=== PATIENT | female | born 1945 | race Caucasian/White ===

== ENCOUNTER 2021-07-10 19:43 | Inpatient (IN) ==
[2021-07-10] MEDS ORDERED: ALBUT/IPRATROP 3MG/0.5MG NEB 3 ML VIAL INH STA (20:05)
--- NOTE | 2021-07-10 20:14 | Emergency Department Note ---
History of Present Illness General Chief complaint: Shortness of Breath/Dyspnea Stated complaint: SOB, COUGH, DIAHRREA Time Seen by Provider: 07/10/21 19:50 History of Present Illness 74-year-old female presents to the ED with a chief complaint of a cough productive of clear phlegm for the past couple of months. Over the past week she has been having increased exertional dyspnea. She does have some dyspnea w ith exertion but this has worsened over the past week. She denies any chest discomfort or chest pains. She does have some chronic edema to the right foot compared to the left that seems to come and go. She denies any calf pains. She has not had any fever. She takes lisinopril for blood pressure otherwise is on no other oral medications. Home Medications Medication Instructions Recorded Confirmed Type lisinopril 40 mg tablet 40 mg PO DAILY 07/10/21 07/10/21 History metronidazole 0.75 % topical cream 1 applic TOPICAL UD 07/10/21 07/10/21 History Allergies Allergy/AdvReac Type Severity Reaction Status Date / Time No Known Allergies Allergy Unverified 12/11/12 10:17 Past Med/Surg History Social History Smoking Status: Never smoker Preferred Language: Argentine Feels Safe at Home: Yes Review of Systems A total of 10 systems reviewed and were otherwise negative Physical Exam Vital Signs Vital Signs - 24 hr 07/10/21 19:46 07/10/21 20:30 07/10/21 21:00 Temperature 36.0 C L Temperature Source Temporal Artery Scan Pulse Rate 101 H 86 Respiratory Rate 18 18 Respiratory Effort / Characteristics Non-Labored Respiratory Depth Normal Normal Respiratory Pattern Regular Blood Pressure 162/77 H 149/67 H Blood Pressure Mean 105 94 Pulse Oximetry 93 95 Oxygen Delivery Method Room Air Room Air Room Air Sepsis Recent Fever Within 48 Hours No Sepsis New/Unexplained Change in Mental Status N/A Sepsis Action Taken by Nursing No Action Required 07/10/21 21:47 07/10/21 22:00 07/10/21 22:20 Temperature Temperature Source Pulse Rate 90 89 89 Respiratory Rate 20 Respiratory Effort / Characteristics Respiratory Depth Respiratory Pattern Blood Pressure 135/76 114/57 L 170/90 H Blood Pressure Mean 95 76 116 Pulse Oximetry 95 93 95 Oxygen Delivery Method Room Air Room Air Room Air Sepsis Recent Fever Within 48 Hours Sepsis New/Unexplained Change in Mental Status Sepsis Action Taken by Nursing 07/10/21 22:30 Temperature Temperature Source Pulse Rate 90 Respiratory Rate 19 Respiratory Effort / Characteristics Respiratory Depth Respiratory Pattern Blood Pressure 136/85 Blood Pressure Mean 102 Pulse Oximetry 97 Oxygen Delivery Method Room Air Sepsis Recent Fever Within 48 Hours Sepsis New/Unexplained Change in Mental Status Sepsis Action Taken by Nursing CONSTITUTIONAL/VITAL SIGNS: Reviewed / noted above. GENERAL: Non-toxic in appearance. INTEGUMENTARY: Warm, dry, and [place]. HEAD: Normocephalic. EYES: without scleral icterus or trauma. ENT/OROPHARYNX: clear and moist. RESPIRATORY: Clear to auscultation bilaterally but diminished in the bases. No increased work of breathing. CARDIOVASCULAR: Regular rate and rhythm. GI/ABDOMEN: Soft and nontender. EXTREMITIES: Warm and well perfused. There is a little edema to the right foot compared to the left. No calf tenderness. NEUROLOGICAL: Intact without focal deficits. PSYCHIATRIC: normal affect. MUSCULOSKELETAL: Normally developed with good muscle tone. TRIAGE NURSING DOCUMENTATION REVIEWED. Course Administered Medications Heparin Sodium/Dextrose (Heparin Sodium/Dextrose) 25,000 units in 500 mls @ 26 mls/hr IV .[id number] EDWARD; Protocol Stop: 08/09/21 22:44 Last Admin: 07/10/21 23:06 Dose: 1,300 units/hr, 26 mls/hr Documented by: [id number] Cosigned by: [id number] Discontinued Medications Albuterol (Albut/Ipratrop 3mg/0.5mg Neb 3 Ml Vial) 3 ml INH NOW STA Stop: 07/10/21 20:06 Last Admin: 07/10/21 20:47 Dose: 3 ml Documented by: [id number] Heparin Sodium (Porcine) (Heparin Sod (Porcine) 1000 Unit/Ml) 6,000 units IV NOW ONE Stop: 07/10/21 23:01 Last Admin: 07/10/21 23:06 Dose: 6,000 units Documented by: [id number] Cosigned by: [id number] Heparin Sodium/Dextrose (Heparin Iv Adult Wt-Based Standard With Bolus Protocol) 1 ea IV NOW STA; Protocol Stop: 07/10/21 22:24 Last Admin: 07/10/21 23:08 Dose: Not Given Documented by: [id number] Ioversol (Optiray 320 125ml) 120 ml IV ONCE ONE Stop: 07/10/21 21:44 Last Admin: 07/10/21 21:44 Dose: 1 ml Documented by: [id number] Critical Care Time Critical Care Time: Yes Total Critical Care Time: 30 I have personally spent 30 minutes of critical care time in the direct management of this patient. This includes bedside care, interpretation of diagnostic studies, and testing, discussion with consultants, patient, and family members, and other required patient management activities. This 30 minutes is in excess of all separately billable procedures. Medical Decision Making Differential Diagnosis The differential was considered includes acute myocardial infarction, acute alexis nary syndrome, myocarditis, pericarditis, pericardial effusions /tamponad, esophageal perforation, pulmonary embolism, pneumonia, pneumothorax, cardiomyopathy, congestive heart, anemia , COPD/asthma exacerbation. Medical Records Attestation: I reviewed the patient's medical records. Home Medications Current Medication List: was personally reviewed by me Laboratory Data Attestation: I reviewed the patient's lab results. Result diagrams: 07/10/21 20:10 07/10/21 21:03 Lab Results 07/10/21 07/10/21 07/10/21 Range/Units 20:10 20:10 20:10 WBC 14.11 H (4.8-10.8) K/uL RBC 4.58 (4.2-5.4) M/uL Hgb 14.6 (12.0-16.0) g/dL Hct 43.3 (37-47) % MCV 94.5 (80-100) fL MCH 31.9 (25-34) pg MCHC 33.7 (32-36) g/dL RDW Std Deviation 46.1 (36.4-46.3) fL RDW Coeff of Daniel 13.3 (11.5-14.5) % Plt Count 170 (130-400) K/uL MPV 10.5 H (7.4-10.4) fL Immature Gran % (Auto) 0.3 % Neut % (Auto) 53.5 % Lymph % (Auto) 35.4 % Turner % (Auto) 9.1 % Eos % (Auto) 1.5 % Baso % (Auto) 0.2 % Neut # (Auto) 7.56 H (1.4-6.5) K/uL Lymph # (Auto) 4.99 H (1.2-3.4) K/uL Turner # (Auto) 1.28 H (0.11-0.59) K/uL Eos # (Auto) 0.21 (0-0.5) K/uL Baso # (Auto) 0.03 (0-0.2) K/uL Immature Gran # (Auto) 0.04 H (0.00-0.02) K/uL PT 10.4 (9.0-12.0) Seconds INR 1.0 (0.9-1.1) APTT 24.6 (21.0-31.0) Seconds PTT Ratio 0.9 D-Dimer 99078 H* (0-500) ug/L FEU Sodium 137 (136-145) mmol/L Potassium (3.5-5.1) mmol/L Chloride 107 (98-107) mmol/L Carbon Dioxide 22 (21-32) mmol/L Anion Gap 8 (3-11) BUN 16 (6-23) mg/dl Creatinine 1.11 (0.6-1.2) mg/dl Est Cr Clr Drug Dosing 51.7 ml/min Est GFR ( Amer) 57.1 ml/min Est GFR (Non-Af Amer) 49.2 ml/min BUN/Creatinine Ratio 14.4 (10-20) Glucose 116 H (70-99(Fasting)) mg/dl Calcium 9.4 (8.5-10.1) mg/dl Total Bilirubin 0.6 (0.2-1.0) mg/dl AST (13-39) U/L ALT 14 (7-52) U/L Alkaline Phosphatase 97 (34-104) U/L Troponin I 0.13 H* (0-0.04) ng/ml B-Natriuretic Peptide (0-100) pg/ml Total Protein 7.2 (6.0-8.3) gm/dl Albumin 3.8 (3.4-5.0) gm/dl Globulin 3.4 (2.5-4.0) gm/dl Albumin/Globulin Ratio 1.1 (0.9-2) Urine Color Urine Appearance (Clear) Urine pH (4.5-7.5) Ur Specific [place] (1.000-1.030) Urine Protein (Negative) Urine Glucose (UA) (Negative) Urine Ketones (Negative) Urine Blood (Negative) Urine Nitrite (Negative) Urine Bilirubin (Negative) Urine Urobilinogen (Negative) Ur Leukocyte Esterase (Negative) Urine WBC (Auto) (0-5) /hpf Urine RBC (Auto) (0-4) /hpf U Hyaline Cast (Auto) (0-5) /lpf U Epithel Cells (Auto) (0-5) /lpf Urine Bacteria (Auto) (Negative) SARS-CoV-2, RNA, NAAT (NEGATIVE) 07/10/21 07/10/21 07/10/21 Range/Units 20:10 20:35 21:03 WBC (4.8-10.8) K/uL RBC (4.2-5.4) M/uL Hgb (12.0-16.0) g/dL Hct (37-47) % MCV (80-100) fL MCH (25-34) pg MCHC (32-36) g/dL RDW Std Deviation (36.4-46.3) fL RDW Coeff of Daniel (11.5-14.5) % Plt Count (130-400) K/uL MPV (7.4-10.4) fL Immature Gran % (Auto) % Neut % (Auto) % Lymph % (Auto) % Turner % (Auto) % Eos % (Auto) % Baso % (Auto) % Neut # (Auto) (1.4-6.5) K/uL Lymph # (Auto) (1.2-3.4) K/uL Turner # (Auto) (0.11-0.59) K/uL Eos # (Auto) (0-0.5) K/uL Baso # (Auto) (0-0.2) K/uL Immature Gran # (Auto) (0.00-0.02) K/uL PT (9.0-12.0) Seconds INR (0.9-1.1) APTT (21.0-31.0) Seconds PTT Ratio D-Dimer (0-500) ug/L FEU Sodium (136-145) mmol/L Potassium 4.6 (3.5-5.1) mmol/L Chloride (98-107) mmol/L Carbon Dioxide (21-32) mmol/L Anion Gap (3-11) BUN (6-23) mg/dl Creatinine (0.6-1.2) mg/dl Est Cr Clr Drug Dosing ml/min Est GFR ( Amer) ml/min Est GFR (Non-Af Amer) ml/min BUN/Creatinine Ratio (10-20) Glucose (70-99(Fasting)) mg/dl Calcium (8.5-10.1) mg/dl Total Bilirubin (0.2-1.0) mg/dl AST 16 (13-39) U/L ALT (7-52) U/L Alkaline Phosphatase (34-104) U/L Troponin I (0-0.04) ng/ml B-Natriuretic Peptide 69 (0-100) pg/ml Total Protein (6.0-8.3) gm/dl Albumin (3.4-5.0) gm/dl Globulin (2.5-4.0) gm/dl Albumin/Globulin Ratio (0.9-2) Urine Color Yellow Urine Appearance Clear (Clear) Urine pH 5.0 (4.5-7.5) Ur Specific [place] 1.010 (1.000-1.030) Urine Protein Negative (Negative) Urine Glucose (UA) Negative (Negative) Urine Ketones Negative (Negative) Urine Blood Trace H (Negative) Urine Nitrite Negative (Negative) Urine Bilirubin Negative (Negative) Urine Urobilinogen Negative (Negative) Ur Leukocyte Esterase 1+ H (Negative) Urine WBC (Auto) 10-30 H (0-5) /hpf Urine RBC (Auto) 0-4 (0-4) /hpf U Hyaline Cast (Auto) 1-5 (0-5) /lpf U Epithel Cells (Auto) >30 H (0-5) /lpf Urine Bacteria (Auto) Negative (Negative) SARS-CoV-2, RNA, NAAT (NEGATIVE) 07/10/21 Range/Units 22:34 WBC (4.8-10.8) K/uL RBC (4.2-5.4) M/uL Hgb (12.0-16.0) g/dL Hct (37-47) % MCV (80-100) fL MCH (25-34) pg MCHC (32-36) g/dL RDW Std Deviation (36.4-46.3) fL RDW Coeff of Daniel (11.5-14.5) % Plt Count (130-400) K/uL MPV (7.4-10.4) fL Immature Gran % (Auto) % Neut % (Auto) % Lymph % (Auto) % Turner % (Auto) % Eos % (Auto) % Baso % (Auto) % Neut # (Auto) (1.4-6.5) K/uL Lymph # (Auto) (1.2-3.4) K/uL Turner # (Auto) (0.11-0.59) K/uL Eos # (Auto) (0-0.5) K/uL Baso # (Auto) (0-0.2) K/uL Immature Gran # (Auto) (0.00-0.02) K/uL PT (9.0-12.0) Seconds INR (0.9-1.1) APTT (21.0-31.0) Seconds PTT Ratio D-Dimer (0-500) ug/L FEU Sodium (136-145) mmol/L Potassium (3.5-5.1) mmol/L Chloride (98-107) mmol/L Carbon Dioxide (21-32) mmol/L Anion Gap (3-11) BUN (6-23) mg/dl Creatinine (0.6-1.2) mg/dl Est Cr Clr Drug Dosing ml/min Est GFR ( Amer) ml/min Est GFR (Non-Af Amer) ml/min BUN/Creatinine Ratio (10-20) Glucose (70-99(Fasting)) mg/dl Calcium (8.5-10.1) mg/dl Total Bilirubin (0.2-1.0) mg/dl AST (13-39) U/L ALT (7-52) U/L Alkaline Phosphatase (34-104) U/L Troponin I (0-0.04) ng/ml B-Natriuretic Peptide (0-100) pg/ml Total Protein (6.0-8.3) gm/dl Albumin (3.4-5.0) gm/dl Globulin (2.5-4.0) gm/dl Albumin/Globulin Ratio (0.9-2) Urine Color Urine Appearance (Clear) Urine pH (4.5-7.5) Ur Specific [place] (1.000-1.030) Urine Protein (Negative) Urine Glucose (UA) (Negative) Urine Ketones (Negative) Urine Blood (Negative) Urine Nitrite (Negative) Urine Bilirubin (Negative) Urine Urobilinogen (Negative) Ur Leukocyte Esterase (Negative) Urine WBC (Auto) (0-5) /hpf Urine RBC (Auto) (0-4) /hpf U Hyaline Cast (Auto) (0-5) /lpf U Epithel Cells (Auto) (0-5) /lpf Urine Bacteria (Auto) (Negative) SARS-CoV-2, RNA, NAAT NEGATIVE (NEGATIVE) ECG Data Attestation: I personally reviewed and interpreted this ECG as follows: Additional Comments: Twelve-lead EKG: Per my interpretation shows a normal sinus rhythm at a rate of 89. No ST elevation. No PVCs. Normal QTC. MDM Narrative 75-year-old female with increased exertional dyspnea over the past week as well as a chronic cough for 2 months. Initial blood pressure was elevated. Heart rate was 101. Twelve-lead EKG showed a heart rate of 89. Afebrile. Sats of 95% on room air in the room. Triage had 93%. The patient transition to the bed from the wheelchair her sats dropped to 90%, per nursing. Patient's twelve-lead EKG shows a normal sinus rhythm at a rate of 89 without acute ischemic changes. Troponin is elevated 0.13. CT scan reveals bilateral pulmonary emboli. D-dimer was elevated and white blood cell count was 14.4. The patient was started on IV heparin. She will be seen by the hospitalist for further inpatient evaluation and care. Impression & Plan Bilateral pulmonary embolism Discharge Plan Visit Data Chief Complaint: Shortness of Breath/Dyspnea Stated Complaint: SOB, COUGH, DIAHRREA ED Provider: Rory Nichols Discharge Problem: Bilateral pulmonary embolism Patient Disposition: Being Evaluated by Hospitalist Forms Stand Alone Forms: My [facility] [employer] Prescriptions Prescriptions: No Action metronidazole 0.75 % cream 1 applic TOPICAL UD RF: 0 lisinopril 40 mg tablet 40 mg PO DAILY RF: 0 Referrals Referrals: Haroon Cristina MD [Primary Care Provider] -
[2021-07-10 20:26] LABS: Basophils # (auto) 0.03 K/uL (0-0.2); Basophils % (auto) 0.2 %; Eosinophils # (auto) 0.21 K/uL (0-0.5); Eosinophils % (auto) 1.5 %; Hematocrit (blood only) 43.3 % (37-47); Hemoglobin 14.6 g/dL (12.0-16.0); Immature Granulocytes # (auto) 0.04 K/uL (0.00-0.02); Immature Granulocytes % (auto) 0.3 %; Lymphocytes # (auto) 4.99 K/uL (1.2-3.4); Lymphocytes % (auto) 35.4 %; Mean Corpuscular Hemoglobin 31.9 pg (25-34); Mean Corpuscular Hgb Conc 33.7 g/dL (32-36); Mean Corpuscular Volume 94.5 fL (80-100); Mean Platelet Volume 10.5 fL (7.4-10.4); Monocytes # (auto) 1.28 K/uL (0.11-0.59); Monocytes % (auto) 9.1 %; Neutrophils # (auto) 7.56 K/uL (1.4-6.5); Neutrophils % (auto) 53.5 %; Platelet Count 170 K/uL (130-400); RDW Coefficient of Variation 13.3 % (11.5-14.5); RDW Standard Deviation 46.1 fL (36.4-46.3); Red Blood Count 4.58 M/uL (4.2-5.4); White Blood Count 14.11 K/uL (4.8-10.8)
[2021-07-10 20:46] LABS: Partial Thromboplastin Ratio 0.9; Partial Thromboplastin Time 24.6 Seconds (21.0-31.0); Prothrombin Time 10.4 Seconds (9.0-12.0)
[2021-07-10 20:56] LABS: Albumin Globulin Ratio 1.1 (0.9-2); Albumin Level 3.8 gm/dl (3.4-5.0); BUN Creatinine Ratio 14.4 (10-20); Bilirubin,Total 0.6 mg/dl (0.2-1.0); Calcium 9.4 mg/dl (8.5-10.1); Creatinine Clr Calc Pharmacy 51.7 ml/min; Est GFR (African American) 57.1 ml/min; Est GFR (Non-African American) 49.2 ml/min; Globulin 3.4 gm/dl (2.5-4.0); Total Protein 7.2 gm/dl (6.0-8.3); Troponin I 0.13 ng/ml (0-0.04)
[2021-07-10 21:11] LABS: Appearance Urine Clear (Clear); Bacteria Urine Automated Negative (Negative); Bilirubin Urine Negative (Negative); Blood Urine Trace (Negative); Color Urine Yellow; Epithelial Cell Urine Auto >30 /lpf (0-5); Glucose Urine UA Negative (Negative); Ketones Urine Negative (Negative); Leukocyte Esterase Urine 1+ (Negative); Nitrite Urine Negative (Negative); Protein Urine Negative (Negative); RBC Urine Automated 0-4 /hpf (0-4); Urobilinogen Urine Negative (Negative)
[2021-07-10 21:16] LABS: D Dimer 11470 ug/L FEU (0-500)
[2021-07-10 21:34] LABS: Potassium 4.6 mmol/L (3.5-5.1)
[2021-07-10] MEDS ORDERED: OPTIRAY 320 125ml IV ONE (21:43)
[2021-07-10] MEDS ORDERED: Heparin IV Adult Wt-Based Standard WITH Bolus Protocol IV STA (22:23)
[2021-07-10] MEDS ORDERED: HEPARIN SOD (PORCINE) 1000 UNIT/ML IV ONE ×2 (22:38→23:00)
[2021-07-10] MEDS: HEPARIN SODIUM/DEXTROSE 25,000 UNITS/500 ML BAG IV SCH (23:06)
[2021-07-10] MEDS ORDERED: ONDANSETRON INJ 2 MG/ML 2 ML VIAL IV PRN (23:59)
[2021-07-10] MEDS ORDERED: SODIUM CHLORIDE 0.9% 1000ML 1,000 ML IV SCH (23:59)
[2021-07-10] MEDS ORDERED: NITROGLYCERIN SL 0.4 MG/TAB TAB SL PRN (23:59)
[2021-07-10] MEDS ORDERED: LEVALBUTEROL HCL 1.25 MG/3 ML NEB NEB PRN (23:59)
[2021-07-11] MEDS: cefTRIAXone SODIUM 2,000 MG in DEXTROSE 5% 50 ML IV SCH ×2 (01:09→23:53)
--- NOTE | 2021-07-11 03:03 | History and Physical Report ---
DATE OF ADMISSION: 07/10/2021. CHIEF COMPLAINT: Shortness of breath. HISTORY OF PRESENT ILLNESS: A 75-year-old female with past medical history significant for prediabetes, hypertension, GERD, chronic kidney disease stage III, sciatica presents with shortness of breath. The patient since last Monday, was getting progressively short of breath . Currently walking short distance making her short of breath, which prompted her to come to the ER. She is having cough since last 2 months. Whenever she gets cough, she is having some whitish phlegm and when she coughs, it lasts for sometime causing some chest soreness and sore throat. Denies any fever or chills. No headache, no dizziness, no blurred visions, no earache, no runny nose, no sore throat, no nausea, no vomiting, no abdominal pain. Normal bowel and bladder movements. Denies any blood in stools or black stools, no hematuria. She has always has some swelling in the legs on and off. The patient was found to have bilateral PE and right heart strain, no recent surgeries. No recent long distance travel, but the patient has significant family history of blood clots. Currently, hemodynamics are stable. Saturating okay on room air. ALLERGIES: No known drug allergies. PAST MEDICAL HISTORY: As mentioned above. PAST SURGICAL HISTORY: Colonoscopy, lumbosacral spinal shots, lumbar spine fusion surgery, removal of the heel spur, repair of ruptured Achilles tendon. MEDICATIONS: The patient is on lisinopril 40 mg p.o. daily, metronidazole topical p.r.n. FAMILY HISTORY: Significant for brother has had colon cancer, brother has diabetes, mother has diabetes, heart disorder; father has heart disorder; sister has diabetes. SOCIAL HISTORY: Single. No smoking, alcohol rare, no drug use. REVIEW OF SYSTEMS: As per HPI. Rest of review of systems is negative. PHYSICAL EXAMINATION: GENERAL: The patient is of moderate build, not in acute distress. VITAL SIGNS: Temperature 36, pulse 90, respiratory rate 19, blood pressure 136/85, oxygen 97% on room air. HEENT: Pupils equal, round and reactive to light. Oral mucosa moist. NECK: No JVD. No neck masses. CARDIOVASCULAR: S1 and S2 heard. Regular rate and rhythm. No murmur, no gallop. RESPIRATORY SYSTEM: Normal AP diameter. No accessory muscle use. No wheezing, no crackles. ABDOMEN: Soft, bowel sounds present, nontender, nondistended. CENTRAL NERVOUS SYSTEM: Cranial nerves II-XII grossly intact, nonfocal. EXTREMITIES: No edema, no erythema. LABORATORY DATA: WBC 14, hemoglobin 14.6, hematocrit 43.3, platelets 170. PT 10.4 14.4, INR 1, APTT 24.6. D-dimer 25901. Sodium 137, potassium 4.6, chloride 107, bicarbonate 22, BUN 16, creatinine 1.1, serum glucose 116, calcium 9.4, total bilirubin 0.6, AST 16, ALT 14, alkaline phosphatase 97. Troponin 0.13. BNP 69. Urinalysis: Trace blood, +1 leukocyte esterase. SARS-CoV-2 RNA rapid test negative. IMAGING DATA: CTA of the chest shows on the preliminary report multifocal lobar and segmental pulmonary emboli with findings suggestive of right heart strain, no focal consolidation, pleural effusion or pneumothorax. EKG: Normal sinus rhythm at a rate of 89, no significant change was found. ASSESSMENT AND PLAN: This is a 75-year-old female who presents with shortness of breath, found to have bilateral PE and right heart strain. 1. Bilateral PE and right heart strain. Currently, saturating okay on room air, hemodynamically stable. Short of breath on minimal exertion. IV heparin was started in the ER, the patient has significant family history of blood clots. We will continue IV heparin for now. Monitor in the tele floor. Echo, lower extremity Doppler. Consult pulmonary in the a.m. 2. Mild elevation of troponin. Follow repeat troponins levels. No obvious chest pains, mostly from right heart strain. We will follow the repeat enzymes, echo, and consult cardiology in the a.m. 3. Hypertension. Continue lisinopril. 4. Possible UTI with IV Rocephin. Follow the cultures. 5. Prediabetes. Will follow hba1c levels. 6. Deep venous thrombosis prophylaxis: On IV heparin. DISPOSITION: Admit to medical tele floor. PT, OT prior to discharge. Social service to help with discharge planning. Level 1 full code. Job ID: [id number] MTDD
[2021-07-11 05:43] LABS: Basophils # (auto) 0.02 K/uL (0-0.2); Basophils % (auto) 0.2 %; Eosinophils # (auto) 0.16 K/uL (0-0.5); Eosinophils % (auto) 1.3 %; Hematocrit (blood only) 41.2 % (37-47); Hemoglobin 13.7 g/dL (12.0-16.0); Immature Granulocytes # (auto) 0.02 K/uL (0.00-0.02); Immature Granulocytes % (auto) 0.2 %; Lymphocytes % (auto) 35.6 %; Mean Corpuscular Hemoglobin 31.4 pg (25-34); Mean Corpuscular Hgb Conc 33.3 g/dL (32-36); Mean Corpuscular Volume 94.5 fL (80-100); Mean Platelet Volume 10.5 fL (7.4-10.4); Monocytes # (auto) 1.02 K/uL (0.11-0.59); Monocytes % (auto) 8.1 %; Neutrophils # (auto) 6.92 K/uL (1.4-6.5); Neutrophils % (auto) 54.6 %; Platelet Count 166 K/uL (130-400); RDW Coefficient of Variation 13.3 % (11.5-14.5); RDW Standard Deviation 45.9 fL (36.4-46.3); Red Blood Count 4.36 M/uL (4.2-5.4); White Blood Count 12.64 K/uL (4.8-10.8)
[2021-07-11 06:09] LABS: BUN Creatinine Ratio 12.4 (10-20); Calcium 9.1 mg/dl (8.5-10.1); Creatinine Clr Calc Pharmacy 54.7 ml/min; Est GFR (Non-African American) 52.6 ml/min; Potassium 4.4 mmol/L (3.5-5.1)
[2021-07-11 06:12] LABS: Partial Thromboplastin Ratio 4.6
[2021-07-11 06:47] LABS: Partial Thromboplastin Time 126.7 Seconds (21.0-31.0)
--- NOTE | 2021-07-11 06:56 | CT Scan Report ---
CT ANGIOGRAM OF THE CHEST CLINICAL HISTORY: Dyspnea. COMPARISON STUDY: Chest x-ray dated 07/10/2021. TECHNIQUE: Following the IV administration of 120 cc of Optiray 320, CT angiogram of the chest was pe rformed from the upper abdomen to the thoracic inlet utilizing the pulmonary embolus protocol. Images are reviewed in the axial, sagittal, and coronal planes. 3-D MIPS images are created and assessed. I V contrast was administered without complication. A dose lowering technique was utilized adhering to the principles of ALARA. CT DOSE: 749.76 mGy.cm FINDINGS: Thyroid: Imaged portions of the thyroid gland are normal in size and attenuation. Thoracic aorta: There is mild atherosclerotic calcification of the thoracic aorta, which is normal in caliber and demonstrates standard 3-vessel arch anatomy. No dissection is seen. Pulmonary vasculature: The pulmonary trunk is normal in caliber. There is extensive bilateral pulmona ry embolus. Thrombus is seen within the distal main pulmonary arteries bilaterally. On the right this extends into the upper, middle, and lower lobe pulmonary arteries into segmental and subsegmental br anches. Thrombus extends into the left upper and left lower lobe pulmonary arteries into the segmenta l and subsegmental branches. There is also pulmonary embolus within the lingular vessels. Heart: The heart is normal in size and without pericardial effusion. Lungs and pleural spaces: Evaluation of the lung parenchyma is modestly degraded by motion artifact. There is no airspace consolidation typical for pneumonia or pleural effusion. The trachea and central airways are clear. Mild atelectasis is noted at the lung bases. A 4 mm right lower lobe pulmonary no dule is seen on image #110. A 6 mm focus of pleural-based nodularity in the right middle lobe is seen along the minor fissure on image #131. Mediastinum: There is no mediastinal lymphadenopathy. Kelli: Clear. Axillae: There is no axillary lymphadenopathy. Upper abdomen: Partially visualized upper abdominal viscera is within normal limits. Skeletal structures: The skeletal structures are osteopenic. Degenerative change is noted in the shou lders and thoracic spine. No lytic or blastic bony lesions are seen. IMPRESSION: 1. Extensive bilateral pulmonary embolus as above. 2. There is no airspace consolidation or pleural effusion. 3. There are at least 2 low suspicion pulmonary and pleural-based nodules measuring up to 6 mm. These can be followed as per the Fleischner criteria if clinically warranted. See below. Please refer to below summary of Fleischner criteria recommendations for follow-up of incidental CT n odules (Marlyn Adames, Guidelines for management of small pulmonary nodules detected on CT scans: A sta tement from the Fleischner Society, Radiology 237: [phone].) SOLID NODULES Solitary nodule size: <6 mm * low risk patients: no follow-up needed * high risk patients: optional CT at 12 months Solitary nodule size: 6-8 mm * low risk patients: follow-up at 6-12 months, then consider further follow-up at 18-24 months * high risk patients: initial follow-up CT at 6-12 months and then at 18-24 months if no change Solitary nodule size: >8 mm * either low or high risk patients - consider follow-up CT at 3 months, and/or CT-PET, and/or biopsy Multiple nodules size: <6 mm * low risk patients: no routine follow-up * high risk patients: optional CT at 12 months Multiple nodules size: 6-8 mm * low risk patients: follow-up at 3-6 months, then consider further follow-up at 18-24 months * high risk patients: follow-up at 3-6 months, then at 18-24 months if no change Multiple nodules size: >8 mm * low risk patients: follow-up at 3-6 months, then consider further follow-up at 18-24 months * high risk patients: follow-up at 3-6 months, then at 18-24 months if no change Note: newly detected indeterminate nodule in persons 35 years of age or older. * low risk patients: minimal or absent history of smoking and/or other known risk factors * high risk patients: history of smoking or of other known risk factors (e.g. first degree relative with lung cancer, or exposure to asbestos, radon, uranium) * if a nodule up to 8 mm is partly solid or is ground glass further follow-up is required after 24 m onths to exclude possible slow growing adenocarcinoma (FARHEEN) SUBSOLID NODULES Solitary pure ground-glass nodule * nodule size <6 mm - no CT follow-up required * nodule size >=6 mm - follow-up CT at 6-12 months, then every 2 years until 5 years Solitary part-solid nodule * nodule size <6 mm - no CT follow-up required * nodule size >=6 mm - follow-up CT at 3-6 months. If unchanged, and solid component remains <6 mm, then annual follow-up for 5 years Multiple subsolid nodules * nodule size <6 mm - follow-up CT at 3-6 months, consider further follow-up at 2 and 4 years if sta ble * nodule size >=6 mm - follow-up CT at 3-6 months, subsequent management based on the most suspiciou s nodule(s) ACT 112: Negative or not required by law. Electronically signed by: Ck Holguin M.D. 07/11/2021 6:54 AM
--- NOTE | 2021-07-11 07:22 | XRay Report ---
SINGLE VIEW CHEST CLINICAL HISTORY: Dyspnea. FINDINGS: 2 AP, portable, upright chest radiographs are compared to study dated 12/11/2012. The heart is top normal for projection noting atherosclerotic calcification of the thoracic aorta. Chronic inte rstitial thickening is similar to previous. There is mild bibasilar atelectasis. The lungs and pleura l spaces are otherwise clear. No pneumothorax is seen. The skeletal structures are osteopenic. The ruma ny thorax is grossly intact. Degenerative changes noted in the thoracic spine and fusion hardware is partially imaged in the lumbar region. IMPRESSION: No acute cardiopulmonary abnormality. ACT 112: Negative or not required by law. Electronically signed by: Ck Holguin M.D. 07/11/2021 7:21 AM
[2021-07-11] MEDS: lisinopril 40 MG TAB PO SCH (08:07)
--- NOTE | 2021-07-11 09:07 | Ultrasound Report ---
ULTRASOUND BILATERAL LOWER EXTREMITY VENOUS CLINICAL HISTORY: Pulmonary embolus COMPARISON STUDY: No priors. TECHNIQUE: Real-time, grayscale, and color Doppler sonography of the deep veins of the right and left lower extremity was performed from the inguinal crease to the calf. Compression and augmentation wer e utilized. FINDINGS: Right lower extremity: There is nearly occlusive to occlusive deep venous thrombosis seen in the dist al superficial femoral vein, the popliteal vein, and within the posterior tibial vein in the calf. Th e common femoral as well as the proximal and mid portions of the superficial femoral vein are patent and normally compressible. The greater saphenous vein and the profunda femoris vein at the junction w ith the common femoral vein are clear. The remaining calf vessels are clear as imaged. Left lower extremity: There is no sonographic evidence of deep venous thrombosis in the left lower ex tremity. The common femoral, superficial femoral, and popliteal veins are patent and normally dung sible. The greater saphenous vein and the profunda femoris vein at the junction with the common femor al vein are clear. The visualized calf veins are patent. IMPRESSION: 1. Extensive nearly occlusive to occlusive deep venous thrombosis in the right lower extremity as abo ve. 2. There is no sonographic evidence of left lower extremity venous thrombosis. ACT 112: Negative or not required by law. Electronically signed by: Ck Holguin M.D. 07/11/2021 9:06 AM
--- NOTE | 2021-07-11 10:28 | Electrocardiogram Report ---
Test Reason : Blood Pressure : / mmHG Vent. Rate : 089 BPM Atrial Rate : 089 BPM P-R Int : 186 ms QRS Dur : 058 ms QT Int : 338 ms P-R-T Axes : 033 081 074 degrees QTc Int : 411 ms Poor data quality, interpretation may be adversely affected Normal sinus rhythm Low voltage QRS Abnormal ECG When compared with ECG of 11-DEC-2012 10:48, No significant change was found Confirmed by Bennie Huertas ([id number]) on 07/11/2021 10:27:52 AM Referred By: REFERRED SELF Confirmed By:Roger Huertas
--- NOTE | 2021-07-11 10:29 | Electrocardiogram Report ---
Test Reason : Blood Pressure : / mmHG Vent. Rate : 081 BPM Atrial Rate : 081 BPM P-R Int : 178 ms QRS Dur : 066 ms QT Int : 388 ms P-R-T Axes : 060 071 072 degrees QTc Int : 450 ms Normal sinus rhythm When compared with ECG of 10-JUL-2021 20:02, (unconfirmed) No significant change was found Confirmed by Bennie Huertas ([id number]) on 07/11/2021 10:28:52 AM Referred By: REFERRED SELF Confirmed By:Roger Huertas
--- NOTE | 2021-07-11 10:32 | Electrocardiogram Report ---
Test Reason : Blood Pressure : / mmHG Vent. Rate : 075 BPM Atrial Rate : 075 BPM P-R Int : 200 ms QRS Dur : 062 ms QT Int : 406 ms P-R-T Axes : 052 078 079 degrees QTc Int : 453 ms Normal sinus rhythm Low voltage QRS Poor R wave progression, consider anterior [place] vs. lead placement vs. LVH Abnormal ECG Confirmed by Bennie Huertas ([id number]) on 07/11/2021 10:31:59 AM Referred By: REFERRED SELF Confirmed By:Roger Huertas
--- NOTE | 2021-07-11 12:55 | Pulmonary Consultation ---
Date of Consultation July 11, 2021 Assessment & Plan (1) Bilateral pulmonary embolism: (2) Dyspnea on exertion: (3) Lung nodule, multiple: (4) Non-productive cough: 75-year-old female with a history of obesity, GERD and hypertension who presented to the hospital due to increasing shortness of breath. She was found to have large bilateral pulmonary emboli. Lower extremity Doppler completed today also demonstrated extensive nearly occlusive to occlusive DVT in the right lower extremity. Unclear if this is a provoked DVT/PE. She did have a very long travel from [place] to [place] and then [place] in May in car. However, she endorses shortness of breath prior to this trip. Would recommend hypercoagulable work-up as an outpatient and referral to hematology. Continue anticoagulation with heparin as you are doing. Can likely transition to a DOAC in the next 1 to 2 days if she remains stable. No indication for systemic thrombolytic therapy at this time. Echo from today reviewed which indicated mild to moderately dilated RV with evidence of Lan sign. PA systolic pressure estimated 43 mmHg. However, she is hemodynamically stable and on room air. She feels better than she did yesterday. Additionally, she has a nonproductive cough that is subacute to chronic in nature. This may be related to lisinopril. Recommend discontinuing lisinopril if possible or transitioning to a different antihypertensive. Can consider a trial of ICS/LABA such as Breo Ellipta. PFTs can be considered as an outpatient. Lastly, there are 2 small lung nodules measuring 4 mm in the right lower lobe and 6 mm pleural-based nodule in the right middle lobe. Recommend a repeat CT chest in 6 months without contrast per Fleischner criteria. Pulmonary will continue to follow. Thank you for the consult. History of Present Illness Reason for Consultation: Bilateral pulmonary embolism Attending Physician: Yuri Benavidez MD History of Present Illness 75-year-old female with a past medical history of obesity, prediabetes, GERD and chronic kidney disease stage III presenting to the hospital due to increasing shortness of breath. Patient notes shortness of breath has been ongoing for several weeks and has become significantly worse yesterday. She also has had an ongoing cough for the past 2 months. She denies any fevers. She did have chest pressure yesterday. She notes that she went on a long trip to [place] and in [place] with her family on June 12. She stayed in [place] for a week and then they drove back. She did have shortness of breath prior to the trip. She also noted swelling during that trip in her lower extremities. She denies any prior history of blood clots. No family history of blood clots that she is aware of. She denies any personal history of lung cancer or other forms of cancer. She denies any recent surgeries in the last 6 months. She is a lifelong non-smoker. 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 Her did work in a [employer] factory and brought home a lot of akutan dust. Allergies Allergy/AdvReac Type Severity Reaction Status Date / Time No Known Allergies Allergy Unverified 12/11/12 10:17 Home Medications Medication Instructions Recorded Confirmed Type lisinopril 40 mg tablet 40 mg PO DAILY 07/10/21 07/10/21 History metronidazole 0.75 % topical cream 1 applic TOPICAL UD 07/10/21 07/10/21 History Patient History Medical History (Updated 07/11/21 @ 12:52 by Arnoldo Hoover MD) Dyspnea on exertion Lung nodule, multiple Non-productive cough Non-productive cough Social History Smoking Status: Never smoker Second Hand Exposure: Yes; Do You Dip or Chew Tobacco: No; Tobacco Cessation Education Requested by Patient: No Hx Alcohol Use: Yes Alcohol type: beer Hx Substance Use: No Preferred Language: Malian Communication Ability: Effective Double End Ten[employer]ter Required: Yes Beliefs That Will Affect Care: None marital status: Current Living Situation: Spouse Other Information That Helps Us Care for You: No Feels Safe at Home: Yes Safety Concerns: Feels Safe At This Time Assistive Devices: Cane Review of Systems Review of Systems: All systems reviewed & are unremarkable except as noted in HPI & below Physical Exam Physical Exam: Constitutional: Patient appears to be of their stated age. Patient is in no apparent distress. Patient is well-developed. Eyes: Pupils are equal round and reactive to light. Conjunctivae are normal. Anicteric sclera. Ears nose, mouth and throat: No obvious deformities Neck: Trachea is midline. Visual inspection is normal. Respiratory: Clear to auscultation bilaterally. No use of accessory muscles. No significant clubbing noted. Cardiovascular: Regular rate and rhythm. No murmurs. No edema. Gastrointestinal: Normal bowel sounds, soft, nontender and nondistended. No hepatosplenomegaly noted. Musculoskeletal: No cyanosis. Patient is able to move all extremities. Skin: No rashes, warm dry and intact. Neurologic: No obvious focal neurological deficits seen. Psychiatric: Alert and oriented x3 with a euthymic affect. Results & Data Results & Data ([facility]) Vital Signs (Past 12 Hours) Vital Signs Temp Pulse Pulse Resp BP Pulse Ox 07/11/21 11:30 36.5 C 74 14 128/76 95 07/11/21 07:57 36.5 C 76 14 129/80 97 07/11/21 07:27 72 07/11/21 02:28 36.6 C 78 17 115/69 93 07/11/21 01:43 88 PG Care Time/CCT Total # of Minutes Spent Total Time Spent with Patient: Total time spent is greater than 50% in coordination of care (as documented) at patient's floor/unit and/or counseling patient: Coding Level of Care Code 61246 Initial Inpt Care Lvl 2 Diagnoses Bilateral pulmonary embolism I26.99 Dyspnea on exertion R06.00 Lung nodule, multiple R91.8 Non-productive cough R05.8
--- NOTE | 2021-07-11 13:27 | Cardiology Consultation ---
Date of Consultation July 11, 2021 Assessment & Plan (1) Bilateral pulmonary embolism: (2) DVT (deep venous thrombosis): Given CT angiogram findings of bilateral pulmonary embolus, the patient's mild, flat troponin I elevation and echocardiogram findings of mild to moderate right ventricular chamber enlargement with RV hypokinesis that spares the right ventricular apex, compatible with right ventricular strain. The patient has had 3 EKG tracings, which are felt to be normal with the exception of poor R wave progression which is likely due to her body habitus, rather than a chronic anterior myocardial infarction, as her LV wall motion is normal. As noted, I do not think the patient's mild troponin I elevation is suggestive of an acute coronary syndrome. The patient is hemodynamically stable, her presenting blood pressure on arrival to the emergency room last night was 162/77, and her blood pressure has remained stable, most recent measurement 128/76. In the absence of hemodynamic collapse, fibrinolytic therapy is not indicated. Agree with current treatment to include heparin for now, with plans to transition her to an oral agent in the next 48 hours. I think that treatment with oral agent warfarin or a direct oral anticoagulant such as Eliquis or Xarelto would be reasonable, and can be determined based on the stability with regards to cost. This does appear to be a provoked DVT/PE with patient having had prolonged car travel recently, but she also has a strong family history and 3 female relatives, and also perhaps her father who in his 70s of possible venous thromboembolic event (although this occurred 30 years ago and it would be very difficult to distinguish whether or not this was a VTE event or other illness). Would recommend obtaining hypercoagulable work up labs, which will help with regards to determined duration of anticoagulation, however, my initial impression is that given the circumstances of her presentation, lifelong anticoagulation may be indicated. History of Present Illness Attending Physician: Yuri Benavidez MD History of Present Illness Paris Rose is a 75 year old female seen in cardiology consultation per the request of Dr West for the evaluation of bilateral pulmonary embolism and mild elevation in the Troponin I. The patient's daughter, Erika Rose, is a RN and works in the emergency department, and participated in our interview by speaker phone. Paris notes recent weeklong trip to [place], having driven there, 12-hour drive, and then returned a week later about 2 weeks ago. She recently experienced a slight intermittent right leg pain that had since resolved. She describes having a cough and progressive shortness of breath with 2-week duration evaluation in the emergency department. A D-dimer screen was significantly elevated, prompting CT angiogram of the chest performed last evening revealing extensive bilateral pulmonary embolus and two 6 mm pulmonary nodules. Lower extremity venous duplex was subsequently performed this morning revealing a nearly occlusive deep venous thrombosis in the distal superficial femoral vein, the popliteal vein, and within the posterior tibial vein in the calf. The patient's troponin I been mildly elevated x3 measurements of 0.13, 0.06, and 0.06 NG per mL. She denies any current chest discomfort. Most recent pulse oximetry was 95% on room air. She is currently on supplemental oxygen, and is comfortable at rest, but notes significant shortness of breath with minimal exertion such as walking to the restroom, and she does have an ongoing nonproductive cough at times. Patient has no past history of venous thromboembolic event. Family History: Niece, recently at [facility] , age of 48. She apparently had a past history of venous thromboembolic disease, was hospitalized with COVID-19, and developed pulmonary embolism which was felt to be implicated in her per the patient's daughters description. The patient has a daughter as well as a granddaughter, who have both been diagnosed with pulmonary embolism, both of which were thought to be related to oral contraceptive use. Allergies Allergy/AdvReac Type Severity Reaction Status Date / Time No Known Allergies Allergy Unverified 12/11/12 10:17 Home Medications Medication Instructions Recorded Confirmed Type lisinopril 40 mg tablet 40 mg PO DAILY 07/10/21 07/10/21 History metronidazole 0.75 % topical cream 1 applic TOPICAL UD 07/10/21 07/10/21 History Patient History Medical History (Updated 07/11/21 @ 13:27 by Jose Hylton DO) Dyspnea on exertion Lung nodule, multiple Non-productive cough Non-productive cough Social History Smoking Status: Never smoker Second Hand Exposure: Yes; Do You Dip or Chew Tobacco: No; Tobacco Cessation Education Requested by Patient: No Hx Alcohol Use: Yes Alcohol type: beer Hx Substance Use: No Preferred Language: Latvian Communication Ability: Effective [employer] Required: Yes Beliefs That Will Affect Care: None marital status: Current Living Situation: Spouse Other Information That Helps Us Care for You: No Feels Safe at Home: Yes Safety Concerns: Feels Safe At This Time Assistive Devices: Cane Review of Systems Review of Systems: All systems reviewed & are unremarkable except as noted in HPI & below Physical Exam Physical Exam: Temp Pulse Resp BP Pulse Ox 36.5 C 74 14 128/76 95 07/11/21 11:30 07/11/21 11:30 07/11/21 11:30 07/11/21 11:30 07/11/21 11:30 Constitutional: WD/WN, vitals as above Respiratory: no respiratory distress and does not use accessory muscles Auscultation: no crackles, no rales and no wheezes Cardiovascular: RRR, no murmur, no edema Gastrointestinal (Abdomen): normal bowel sounds, soft, nontender, no hepatosplenomegaly Neurologic: PERRL, EOMI, accommodation nl, no face palsy, no dysarthria Results & Data ([facility]) Vital Signs (Past 12 Hours) Vital Signs Temp Pulse Pulse Resp BP Pulse Ox 07/11/21 11:30 36.5 C 74 14 128/76 95 07/11/21 07:57 36.5 C 76 14 129/80 97 07/11/21 07:27 72 07/11/21 02:28 36.6 C 78 17 115/69 93 07/11/21 01:43 88 Laboratory Results Cardiac Enzymes 07/10/21 07/10/21 07/10/21 Range/Units 20:10 20:10 21:03 AST 16 (13-39) U/L Troponin I 0.13 H* (0-0.04) ng/ml B-Natriuretic Peptide 69 (0-100) pg/ml 07/11/21 07/11/21 Range/Units 05:17 11:16 AST (13-39) U/L Troponin I 0.06 H* 0.06 H* (0-0.04) ng/ml B-Natriuretic Peptide (0-100) pg/ml Coagulation 07/10/21 07/10/21 07/11/21 Range/Units 20:10 20:10 05:17 PT 10.4 (9.0-12.0) Seconds APTT 24.6 126.7 H* (21.0-31.0) Seconds B-Natriuretic Peptide 69 (0-100) pg/ml CBC 07/10/21 07/11/21 Range/Units 20:10 05:17 WBC 14.11 H 12.64 H (4.8-10.8) K/uL RBC 4.58 4.36 (4.2-5.4) M/uL Hgb 14.6 13.7 (12.0-16.0) g/dL Hct 43.3 41.2 (37-47) % Plt Count 170 166 (130-400) K/uL Neut # (Auto) 7.56 H 6.92 H (1.4-6.5) K/uL Lymph # (Auto) 4.99 H 4.50 H (1.2-3.4) K/uL Alpine # (Auto) 1.28 H 1.02 H (0.11-0.59) K/uL Eos # (Auto) 0.21 0.16 (0-0.5) K/uL Baso # (Auto) 0.03 0.02 (0-0.2) K/uL Comprehensive Metabolic Panel 07/10/21 07/10/21 07/11/21 Range/Units 20:10 21:03 05:17 Sodium 137 138 (136-145) mmol/L Potassium 4.6 4.4 (3.5-5.1) mmol/L Chloride 107 107 (98-107) mmol/L Carbon Dioxide 22 22 (21-32) mmol/L BUN 16 13 (6-23) mg/dl Creatinine 1.11 1.05 (0.6-1.2) mg/dl Glucose 116 H 122 H (70-99(Fasting)) mg/dl Calcium 9.4 9.1 (8.5-10.1) mg/dl AST 16 (13-39) U/L ALT 14 (7-52) U/L Alkaline Phosphatase 97 (34-104) U/L Total Protein 7.2 (6.0-8.3) gm/dl Albumin 3.8 (3.4-5.0) gm/dl Diagnostic Findings Summary transthoracic echocardiogram performed 07/11/2021: Sinus rhythm in the 70s noted at the time of the echocardiogram Left ventricular chamber size and wall motion, LVEF, normal, LVEF 60 to 65%. Right ventricle is dilated to a mild to moderate degree. The right ventricular systolic function is mildly reduced with mild diffuse right ventricular hypokinesis that spares the right ventricular apex. Mild tricuspid regurgitation is present. The hypertension is present, the pulmonary artery systolic pressure estimated to be 43 mmHg.
[2021-07-11 13:52] LABS: Partial Thromboplastin Time 55.4 Seconds (21.0-31.0)
--- NOTE | 2021-07-11 15:16 | Hospitalist Progress Note ---
Date of Service July 11, 2021 Assessment & Plan (1) Bilateral pulmonary embolism: Plan: History of weeklong car travel in [place] about 2 weeks ago Has a strong family history of blood clots Symptoms of shortness of breath for 2 weeks noted to have DVT as well Could be provoked with a strong family history of blood clot Heparin has been started and plan to start on oral anticoagulation in a day or 2 Will send hypercoagulable work-up and will need rheumatology appointment as an outpatient Appreciate pulmonary and cardiology input Patient remains asymptomatic in bed (2) Dyspnea on exertion: Plan: Secondary to large bilateral pulmonary embolism (3) DVT (deep venous thrombosis): Plan: Noted to have near occlusive DVT in the right lower extremity No calf tenderness (4) Hypertension: Plan: Remains stable (5) Elevated troponin: Plan: Mild troponin elevation likely secondary to RV strain Echo of the heart showed-normal LV wall thickness with wall motion, EF 60 to 65%, RV is mild to moderately dilated, RV systolic function is mildly reduced with mild diffuse right ventricular hypokinesis that spares the right ventricular apex, mild TR, mild pulmonary hypertension, PA systolic pressure is is estimated to be 43 mmHg and grade 1 diastolic dysfunction. Given recent CT finding of bilateral pulmonary embolism, echocardiogram findings are compatible with pulmonary embolus with resultant right ventricular strain No evidence of ACS Appreciate cardiology input and recommendation (6) Lung nodule, multiple: Plan: Small bilateral lung nodules Will need repeat CT in 6 months Admission and Anticipated Discharge Date Admission Date: July 10, 2021 Subjective 07/11/2021 The patient was seen and examined in telemetry unit Was admitted with progressive shortness of breath of 2 weeks duration with a history of weeklong trip to [place] by car and returned about 2 weeks ago Has a strong family history of clots 8G denies any symptoms of shortness of breath and/or calf pain Review of Systems Review of Systems: All systems reviewed and are unremarkable except as noted in Respiratory: No shortness of breath, cough or hemoptysis Cardiovascular: Additional Comments: No chest pain and/or palpitation Physical Exam Physical Exam: Lying in bed comfortably Constitutional: well developed, well nourished and + obese; not ill appearing Eyes: PERRL, conjunctivae normal, anicteric sclerae ENMT: external ear and nose normal, oropharynx normal Neck: trachea midline, no thyromegaly Respiratory: no respiratory distress Auscultation: lungs clear to auscultation bilaterally Cardiovascular: Rate/Rhythm: regular rate and regular rhythm; not tachycardic Heart Sounds: normal S1 and normal S2; no murmur Extremities: no edema (No calf tenderness) Gastrointestinal (Abdomen): Inspection/Auscultation: normal bowel sounds; abdomen not distended Percussion/Palpation: abdomen soft; abdomen nontender Musculoskeletal: No acute arthritis in any joint Neurologic: Alert, awake and oriented x3. No focal sensory or motor deficit appreciated Results & Data Results & Data ([facility]) Vital Signs (Past 12 Hours) Vital Signs Temp Pulse Pulse Resp BP Pulse Ox 07/11/21 14:56 82 07/11/21 11:30 36.5 C 74 14 128/76 95 07/11/21 07:57 36.5 C 76 14 129/80 97 07/11/21 07:27 72 Laboratory Results Short CBC 07/10/21 07/11/21 Range/Units 20:10 05:17 WBC 14.11 H 12.64 H (4.8-10.8) K/uL Hgb 14.6 13.7 (12.0-16.0) g/dL Hct 43.3 41.2 (37-47) % Plt Count 170 166 (130-400) K/uL BMP 07/10/21 07/10/21 07/11/21 20:10 21:03 05:17 Sodium 137 138 Potassium 4.6 4.4 Chloride 107 107 Carbon Dioxide 22 22 BUN 16 13 Creatinine 1.11 1.05 Glucose 116 H 122 H Calcium 9.4 9.1 Cardiac Enzymes 07/10/21 07/11/21 07/11/21 Range/Units 20:10 05:17 11:16 Troponin I 0.13 H* 0.06 H* 0.06 H* (0-0.04) ng/ml Liver Function 07/10/21 07/10/21 Range/Units 20:10 21:03 Total Bilirubin 0.6 (0.2-1.0) mg/dl AST 16 (13-39) U/L ALT 14 (7-52) U/L Alkaline Phosphatase 97 (34-104) U/L Albumin 3.8 (3.4-5.0) gm/dl Urine 07/10/21 Range/Units 20:35 Urine Color Yellow Urine Appearance Clear (Clear) Urine pH 5.0 (4.5-7.5) Ur Specific Cosby 1.010 (1.000-1.030) Urine Protein Negative (Negative) Urine Glucose (UA) Negative (Negative) Medications Administered Short CBC 07/10/21 07/11/21 Range/Units 20:10 05:17 WBC 14.11 H 12.64 H (4.8-10.8) K/uL Hgb 14.6 13.7 (12.0-16.0) g/dL Hct 43.3 41.2 (37-47) % Plt Count 170 166 (130-400) K/uL BMP 07/10/21 07/10/21 07/11/21 20:10 21:03 05:17 Sodium 137 138 Potassium 4.6 4.4 Chloride 107 107 Carbon Dioxide 22 22 BUN 16 13 Creatinine 1.11 1.05 Glucose 116 H 122 H Calcium 9.4 9.1 Cardiac Enzymes 07/10/21 07/11/21 07/11/21 Range/Units 20:10 05:17 11:16 Troponin I 0.13 H* 0.06 H* 0.06 H* (0-0.04) ng/ml Liver Function 07/10/21 07/10/21 Range/Units 20:10 21:03 Total Bilirubin 0.6 (0.2-1.0) mg/dl AST 16 (13-39) U/L ALT 14 (7-52) U/L Alkaline Phosphatase 97 (34-104) U/L Albumin 3.8 (3.4-5.0) gm/dl Urine 07/10/21 Range/Units 20:35 Urine Color Yellow Urine Appearance Clear (Clear) Urine pH 5.0 (4.5-7.5) Ur Specific Cosby 1.010 (1.000-1.030) Urine Protein Negative (Negative) Urine Glucose (UA) Negative (Negative)
[2021-07-11] MEDS: HEPARIN SODIUM/DEXTROSE 25,000 UNITS/500 ML BAG IV SCH (20:55)
[2021-07-12 05:49] LABS: Basophils # (auto) 0.03 K/uL (0-0.2); Basophils % (auto) 0.3 %; Eosinophils # (auto) 0.28 K/uL (0-0.5); Eosinophils % (auto) 2.5 %; Hematocrit (blood only) 41.2 % (37-47); Hemoglobin 13.6 g/dL (12.0-16.0); Immature Granulocytes # (auto) 0.03 K/uL (0.00-0.02); Immature Granulocytes % (auto) 0.3 %; Lymphocytes # (auto) 4.74 K/uL (1.2-3.4); Lymphocytes % (auto) 42.6 %; Mean Corpuscular Hemoglobin 31.5 pg (25-34); Mean Corpuscular Volume 95.4 fL (80-100); Mean Platelet Volume 10.3 fL (7.4-10.4); Monocytes # (auto) 0.79 K/uL (0.11-0.59); Monocytes % (auto) 7.1 %; Neutrophils # (auto) 5.26 K/uL (1.4-6.5); Neutrophils % (auto) 47.2 %; Platelet Count 154 K/uL (130-400); RDW Coefficient of Variation 13.4 % (11.5-14.5); RDW Standard Deviation 46.9 fL (36.4-46.3); Red Blood Count 4.32 M/uL (4.2-5.4); White Blood Count 11.13 K/uL (4.8-10.8)
[2021-07-12 06:09] LABS: BUN Creatinine Ratio 11.9 (10-20); Creatinine Clr Calc Pharmacy 56.7 ml/min; Est GFR (Non-African American) 55.2 ml/min; Magnesium 1.9 mg/dl (1.7-2.4); Potassium 4.5 mmol/L (3.5-5.1)
[2021-07-12 06:10] LABS: Partial Thromboplastin Ratio 2.3
[2021-07-12 06:17] LABS: Partial Thromboplastin Time 63.8 Seconds (21.0-31.0)
[2021-07-12] MEDS: ACETAMINOPHEN 325 MG TAB PO PRN ×2 (06:42→21:05)
[2021-07-12 07:28] LABS: Estimated Average Glucose 134 mg/dl; Hemoglobin A1C 6.3 % (4.5-5.6)
--- NOTE | 2021-07-12 07:50 | Pulmonology Progress Note ---
Date of Service July 12, 2021 Assessment & Plan (1) Bilateral pulmonary embolism: (2) Dyspnea on exertion: (3) Lung nodule, multiple: Plan: 75-year-old female with a history of obesity, GERD and hypertension who presented to the hospital due to increasing shortness of breath. She was found to have large bilateral pulmonary emboli. Lower extremity Doppler completed today also demonstrated extensive nearly occlusive to occlusive DVT in the right lower extremity. --Bilateral pulmonary embolism with right lower extremity DVT Patient did have significant travel history to [place] and [place] She also has significant family history of PE and DVT It is right now unclear if it is provoked or unprovoked. --Pulmonary nodules 4 mm right lower lobe and 6 mm right middle lobe In a patient who is a lifetime non-smoker Low risk Can consider repeating a CAT scan in 6-12 months --Probable RADHA Recommend outpatient polysomnography Plan: Recommend hypercoagulable work-up to be done as as an outpatient Outpatient hematology follow-up Can transition to p.o. DOACs Outpatient polysomnography No further recommendation from pulmonary perspective. We will sign off, please call directly with any questions Please note the above document was generated using voice recognition software. It may contain grammatical, syntax or spelling errors.Any formal questions or concerns about the content, text or information contained within the body of this dictation should be directly addressed to the provider for clarification. Admission and Anticipated Discharge Date Admission Date: July 10, 2021 Subjective Patient seen and examined at bedside. No acute distress, no adverse events overnight. She was on heparin drip. Denies any hematuria no hematochezia. Was saturating well on room air. No chest pain, no headache, no nausea or vomiting Good appetite Review of Systems Review of Systems: All systems reviewed & are unremarkable except as noted in Subjective Physical Exam Physical Exam: Constitutional: No acute distress HEENT: EOMI, PERRLA, thick neck Respiratory system: Good air entry bilaterally, no wheeze, no rhonchi, no crackles CVS: S1-S2 positive, no murmurs or gallops Abdomen: Soft, nontender, nondistended, positive bowel sounds x4, obese Extremities: +2 pulses bilaterally radialis/ dorsalis pedis, no cyanosis, no edema Neuro: Awake alert oriented x3 Psych: Normal mood and affect G/U: No Feldman Skin: no rashes, warm and dry Lymphatic: no cervical or axillary lymphadenopathy Results & Data Results & Data ([facility]) Vital Signs (Past 12 Hours) Vital Signs Temp Pulse Pulse Resp BP Pulse Ox Pulse Ox 07/12/21 07:46 36.4 C L 77 20 138/63 93 07/12/21 07:27 77 07/12/21 03:28 36.9 C 81 18 115/70 95 07/11/21 23:59 95 07/11/21 23:29 36.7 C 80 16 122/74 95 07/11/21 22:57 88 Laboratory Results 07/12/21 05:36 07/12/21 05:36 PG Care Time/CCT Total # of Minutes Spent Total Time Spent with Patient: Total time spent is greater than 50% in coordination of care (as documented) at patient's floor/unit and/or counseling patient: Coding Level of Care Code 76831 Subseq Hosp Care Lvl 2 Diagnoses Bilateral pulmonary embolism I26.99 Dyspnea on exertion R06.00 Lung nodule, multiple R91.8
--- NOTE | 2021-07-12 08:50 | Electrocardiogram Report ---
Test Reason : Blood Pressure : / mmHG Vent. Rate : 078 BPM Atrial Rate : 078 BPM P-R Int : 194 ms QRS Dur : 064 ms QT Int : 386 ms P-R-T Axes : 054 081 076 degrees QTc Int : 440 ms Normal sinus rhythm When compared with ECG of 11-JUL-2021 06:37, Nonspecific T wave abnormality now evident in Anterior leads Confirmed by Bennie Huertas ([id number]) on 07/12/2021 8:49:46 AM Referred By: REFERRED SELF Confirmed By:Roger Huertas
[2021-07-12] MEDS: lisinopril 40 MG TAB PO SCH (08:56)
--- NOTE | 2021-07-12 15:34 | Cardiology Progress Note ---
Date of Service July 12, 2021 Assessment & Plan (1) Bilateral pulmonary embolism: (2) DVT (deep venous thrombosis): (3) Elevated troponin: Plan: DVT, bilateral PE with evidence of mild RV strain on echocardiogram, thus explaining the mild troponin elevation. EKG today again reveals poor R wave progression consistent with body habitus. Pulmonary input noted and appreciated. Remains hemodynamically stable, HR 80s ,sinus, BP 136/76, pulse ox: 95% on room air. No indication for lytic therapy. Continue heparin, if feasible from a cost perspective transition to oral DOAC such as Eliquis. Agree with outpatient heme consult for hypercoagulable work up. Given strong family history of VTE , halfway anticoagulation may be indicated even when taking recent travel in to account. Admission and Anticipated Discharge Date Admission Date: July 10, 2021 Subjective Pt seen in follow up. Notes mild subjective improvement in cough, and DÍAZ. Telemetry reveals SR in the 80s . Physical Exam Constitutional: WD/WN, vitals as above Respiratory: normal respiratory effort, lungs clear to auscultation Cardiovascular: RRR, no murmur, no edema Gastrointestinal (Abdomen): normal bowel sounds, soft, nontender, no hepatosplenomegaly Neurologic: PERRL, EOMI, accommodation nl, no face palsy, no dysarthria Results & Data ([facility]) Vital Signs (Past 12 Hours) Vital Signs Temp Pulse Pulse Resp BP Pulse Ox 07/12/21 14:50 82 07/12/21 11:26 36.6 C 82 18 136/76 95 07/12/21 07:46 36.4 C L 77 20 138/63 93 07/12/21 07:27 77
--- NOTE | 2021-07-12 15:54 | Hospitalist Progress Note ---
Date of Service July 12, 2021 Assessment & Plan (1) Bilateral pulmonary embolism: Plan: History of weeklong car travel in [place] about 2 weeks ago Has a strong family history of blood clots Symptoms of shortness of breath for 2 weeks noted to have DVT as well Could be provoked with a strong family history of blood clot Heparin has been started and plan to start on oral anticoagulation in a day or 2 Will send hypercoagulable work-up and will need rheumatology appointment as an outpatient Appreciate pulmonary and cardiology input Patient remains asymptomatic in bed Hypercoagulable work-up has been sent She remains stable medically We will get PT and OT evaluation and a two-step O2 saturation test before discharge tomorrow Will start oral Eliquis on discharge Hematology appointment as an outpatient (2) Dyspnea on exertion: Plan: Secondary to large bilateral pulmonary embolism (3) DVT (deep venous thrombosis): Plan: Noted to have near occlusive DVT in the right lower extremity No calf tenderness (4) Hypertension: Plan: Remains stable (5) Elevated troponin: Plan: Mild troponin elevation likely secondary to RV strain Echo of the heart showed-normal LV wall thickness with wall motion, EF 60 to 65%, RV is mild to moderately dilated, RV systolic function is mildly reduced with mild diffuse right ventricular hypokinesis that spares the right ventricular apex, mild TR, mild pulmonary hypertension, PA systolic pressure is is estimated to be 43 mmHg and grade 1 diastolic dysfunction. Given recent CT finding of bilateral pulmonary embolism, echocardiogram findings are compatible with pulmonary embolus with resultant right ventricular strain No evidence of ACS Appreciate cardiology input and recommendation (6) Lung nodule, multiple: Plan: Small bilateral lung nodules Will need repeat CT in 6 months Admission and Anticipated Discharge Date Admission Date: July 10, 2021 Subjective 07/11/2021 The patient was seen and examined in telemetry unit Was admitted with progressive shortness of breath of 2 weeks duration with a history of weeklong trip to [place] by car and returned about 2 weeks ago Has a strong family history of clots 8G denies any symptoms of shortness of breath and/or calf pain 07/12/2021 The patient was seen and examined in the telemetry unit She has been stable and denies any symptoms at rest No calf pain, no cough no shortness of breath at rest Review of Systems Review of Systems: All systems reviewed and are unremarkable except as noted in Respiratory: No shortness of breath, cough or hemoptysis Cardiovascular: Additional Comments: No chest pain and/or palpitation Physical Exam Physical Exam: Lying in bed comfortably Constitutional: well developed, well nourished and + obese; not ill appearing Eyes: PERRL, conjunctivae normal, anicteric sclerae ENMT: external ear and nose normal, oropharynx normal Neck: trachea midline, no thyromegaly Respiratory: no respiratory distress Auscultation: lungs clear to auscultation bilaterally Cardiovascular: Rate/Rhythm: regular rate and regular rhythm; not tachycardic Heart Sounds: normal S1 and normal S2; no murmur Extremities: no edema (No calf tenderness) Gastrointestinal (Abdomen): Inspection/Auscultation: normal bowel sounds; abdomen not distended Percussion/Palpation: abdomen soft; abdomen nontender Musculoskeletal: No acute arthritis in any joint Neurologic: Alert, awake and oriented x3. No focal sensory or motor deficit appreciated Results & Data Results & Data ([facility]) Vital Signs (Past 12 Hours) Vital Signs Temp Pulse Pulse Resp BP Pulse Ox 07/12/21 15:30 36.7 C 78 20 117/63 93 07/12/21 14:50 82 07/12/21 11:26 36.6 C 82 18 136/76 95 07/12/21 07:46 36.4 C L 77 20 138/63 93 07/12/21 07:27 77 Laboratory Results Short CBC 07/12/21 Range/Units 05:36 WBC 11.13 H (4.8-10.8) K/uL Hgb 13.6 (12.0-16.0) g/dL Hct 41.2 (37-47) % Plt Count 154 (130-400) K/uL BMP 07/12/21 05:36 Sodium 137 Potassium 4.5 Chloride 106 Carbon Dioxide 24 BUN 12 Creatinine 1.01 Glucose 120 H Calcium 9.0 Medications Administered Current Inpatient Medications Acetaminophen (Acetaminophen 325 Mg Tab) 650 mg PO Q4H PRN PRN Reason: Pain or Fever Stop: 08/09/21 23:58 Last Admin: 07/12/21 06:42 Dose: 650 mg Documented by: Heparin Sodium/Dextrose (Heparin Sodium/Dextrose) 25,000 units in 500 mls @ 20 mls/hr IV .Q24H [facility]; Protocol Stop: 08/09/21 22:44 Last Titration: 07/12/21 06:52 Dose: 1,000 units/hr, 20 mls/hr Documented by: Ceftriaxone Sodium 2,000 mg/ (Dextrose) 70 mls @ 100 mls/hr IV Q24H [facility]; Protocol Stop: 07/21/21 00:29 Last Infusion: 07/12/21 00:35 Dose: Infused Documented by: Levalbuterol HCl (Levalbuterol Hcl 1.25 Mg/3 Ml Neb) 1.25 mg NEB Q4H PRN; Protocol PRN Reason: Shortness Of Breath Or Wheezing Stop: 08/09/21 23:58 Lisinopril (Lisinopril 40 Mg Tab) 40 mg PO DAILY EDWARD Stop: 08/10/21 08:59 Last Admin: 07/12/21 08:56 Dose: 40 mg Documented by: Nitroglycerin (Nitroglycerin Sl 0.4 Mg/Tab Tab) 0.4 mg SL UD PRN PRN Reason: Chest Pain Stop: 08/09/21 23:58 Ondansetron HCl (Ondansetron Inj 2 Mg/Ml 2 Ml Vial) 4 mg IV Q6H PRN PRN Reason: Nausea Stop: 08/09/21 23:58
[2021-07-12] MEDS: HEPARIN SODIUM/DEXTROSE 25,000 UNITS/500 ML BAG IV SCH (21:11)
[2021-07-13] MEDS: cefTRIAXone SODIUM 2,000 MG in DEXTROSE 5% 50 ML IV SCH (01:13)
[2021-07-13 07:58] LABS: Partial Thromboplastin Ratio 1.7
[2021-07-13 08:01] LABS: Partial Thromboplastin Time 46.3 Seconds (21.0-31.0)
[2021-07-13] MEDS: lisinopril 40 MG TAB PO SCH (08:18)
[2021-07-13] MEDS ORDERED: RIVAROXABAN 15 MG TAB PO SCH (10:30)
--- NOTE | 2021-07-14 13:45 | Discharge Summary ---
Date of Service July 14, 2021 Admission HPI Per Admitting Provider DICTATED BY:Wilson West MD DATE OF ADMISSION: 07/10/2021. CHIEF COMPLAINT: Shortness of breath. HISTORY OF PRESENT ILLNESS: A 75-year-old female with past medical history significant for prediabetes, hypertension, GERD, chronic kidney disease stage III, sciatica presents with shortness of breath. The patient since last Monday, was getting progressively short of breath . Currently walking short distance making her short of breath, which prompted her to come to the ER. She is having cough since last 2 months. Whenever she gets cough, she is having some whitish phlegm and when she coughs, it lasts for sometime causing some chest soreness and sore throat. Denies any fever or chills. No headache, no dizziness, no blurred visions, no earache, no runny nose, no sore throat, no nausea, no vomiting, no abdominal pain. Normal bowel and bladder movements. Denies any blood in stools or black stools, no hematuria. She has always has some swelling in the legs on and off. The patient was found to have bilateral PE and right heart strain, no recent surgeries. No recent long distance travel, but the patient has significant family history of blood clots. Currently, he modynamics are stable. Saturating okay on room air. Admission Exam Per Admitting Provider GENERAL: The patient is of moderate build, not in acute distress. VITAL SIGNS: Temperature 36, pulse 90, respiratory rate 19, blood pressure 136/85, oxygen 97% on room air. HEENT: Pupils equal, round and reactive to light. Oral mucosa moist. NECK: No JVD. No neck masses. CARDIOVASCULAR: S1 and S2 heard. Regular rate and rhythm. No murmur, no gallop. RESPIRATORY SYSTEM: Normal AP diameter. No accessory muscle use. No wheezing, no crackles. ABDOMEN: Soft, bowel sounds present, nontender, nondistended. CENTRAL NERVOUS SYSTEM: Cranial nerves II-XII grossly intact, nonfocal. EXTREMITIES: No edema, no erythema. Principal Diagnosis Bilateral pulmonary embolism, DVT of the right lower extremity, hypertension Discharge Exam Lying in bed comfortably Constitutional well developed, well nourished and + obese; not ill appearing Eyes PERRL, conjunctivae normal, anicteric sclerae ENMT external ear and nose normal, oropharynx normal Neck trachea midline, no thyromegaly Respiratory no respiratory distress Auscultation: lungs clear to auscultation bilaterally Cardiovascular Rate/Rhythm: regular rate and regular rhythm; not tachycardic Heart Sounds: normal S1 and normal S2; no murmur Extremities: no edema (No calf tenderness) Gastrointestinal (Abdomen) Inspection/Auscultation: normal bowel sounds; abdomen not distended Percussion/Palpation: abdomen soft; abdomen nontender Discharge Data Allergies Allergy/AdvReac Type Severity Reaction Status Date / Time No Known Allergies Allergy Unverified 12/11/12 10:17 Consultations 07/10/21 22:24 ED Decision to Admit Stat 07/11/21 08:00 Consult Cardiology Routine Consult Pulmonology Routine Ordered Studies 07/10/21 21:16 CT angio chest PE protocol Urgent 07/11/21 08:00 US venous doppler LE Routine Hospital Course (1) Bilateral pulmonary embolism: History of weeklong car travel in [place] about 2 weeks ago Has a strong family history of blood clots Symptoms of shortness of breath for 2 weeks noted to have DVT as well Could be provoked with a strong family history of blood clot Heparin has been started and plan to start on oral anticoagulation in a day or 2 Will send hypercoagulable work-up and will need rheumatology appointment as an outpatient Appreciate pulmonary and cardiology input Patient remains asymptomatic in bed Hypercoagulable work-up has been sent She remains stable medically We will get PT and OT evaluation and a two-step O2 saturation test before discharge tomorrow Will start oral Eliquis on discharge Hematology appointment as an outpatient (2) Dyspnea on exertion: Secondary to large bilateral pulmonary embolism (3) DVT (deep venous thrombosis): Noted to have near occlusive DVT in the right lower extremity No calf tenderness (4) Hypertension: Remains stable (5) Elevated troponin: Mild troponin elevation likely secondary to RV strain Echo of the heart showed-normal LV wall thickness with wall motion, EF 60 to 65%, RV is mild to moderately dilated, RV systolic function is mildly reduced with mild diffuse right ventricular hypokinesis that spares the right ventricular apex, mild TR, mild pulmonary hypertension, PA systolic pressure is is estimated to be 43 mmHg and grade 1 diastolic dysfunction. Given recent CT finding of bilateral pulmonary embolism, echocardiogram findings are compatible with pulmonary embolus with resultant right ventricular strain No evidence of ACS Appreciate cardiology input and recommendation (6) Lung nodule, multiple: Small bilateral lung nodules Will need repeat CT in 6 months Total Time Total Time Spent Total Time Spent (In Minutes): 40 minutes Discharge Plan Discharge Items Patient Disposition: Home - Self-Care Reason For Visit: SOB Discharge Diagnosis: Bilateral pulmonary embolism, DVT of the right lower extremity, hypertension Condition on Discharge: Good Activity: Resume your previous activity Non-emergency contact: Primary Care Provider Call non-emergency contact if: you have any medication questions and your symptoms worsen Follow-up/Referrals: Haroon Cristina MD [Primary Care Provider] - (Date & Time 07/21/2021 10:00 AM Provider Haroon Cristina MD Department [facility] ) Diet: Heart Healthy Addtl Attending Provider Instructions: Please take precautions to avoid fall Take your medications regularly especially Please keep appointments with your healthcare providers Avoid any strenuous activities and try to avoid any injury Pending Studies at Discharge: Yes Studies:: Hypercoagulable work-up Stand-Alone Forms: My [facility], Smoking Cessation Medications and DC Order Prescriptions: New Xarelto 15 mg Tablet 15 mg PO BIDM 21 Days Qty: 42 RF: 0 Xarelto 20 mg tablet 20 mg PO DAILY Qty: 30 RF: 0 Continued metronidazole 0.75 % cream 1 applic TOPICAL UD RF: 0 lisinopril 40 mg tablet 40 mg PO DAILY RF: 0 Discharge Orders: Discharge Order (Routine); Ordered 07/13/21 Ordered By: Yuri Lugo/Other Patient Handouts: Prediabetes, 5 Steps for Eating Healthier, Embolism Pulmonary Dc Admission Data Admit Date/Time: 07/10/21 23:19 Attending Provider: Yuri Benavidez Admit Provider: Wilson West Primary Care Provider: Haroon Cristina Other Providers: Wilson West ; Nghia Santoro ; Jose Hylton ; Jarrell Underwood ; Papi Resendiz ; Immanuel Bernard ; Imtiaz Beasley ; Marianna Garduno ; Leelee Lowe ; Judith Flood ; Kareem Mobley ; Ray Iqbal Other Interventions: Discharge Summary Assessment (RN) Last Done: 07/13/21 13:18
[2021-07-15 10:18] LABS: Anti Cardiolipin Ab IgG <2.0 GPL-U/mL; Anti Cardiolipin Ab IgM <2.0 MPL-U/mL; B2 Glycoprotein IgG <2.0 U/mL (<20.0); B2 Glycoprotein IgM <2.0 U/mL (<20.0)
[2021-07-17 23:07] LABS: Factor 5 Mutation NEGATIVE
== END 2021-07-13 14:38 | disposition home or self-care (01) | DRG 299 ==
LOC: ED 19:43 → 2S 23:19